=== PATIENT | male | born 1965 | race Caucasian/White ===

== ENCOUNTER 2021-11-19 15:40 | Inpatient (IN) | payer BC, OTHER ==
[2021-11-19 16:01] VITALS: BP 154/91; PULSE 78; TEMP 98.2; BMI 39.0
[2021-11-19 17:50] LABS: BASO % 1.2 % (0-2.0); EOS % 3.2 % (0-4.5); HEMATOCRIT 39.1 % (35.4-49); HEMOGLOBIN 13.1 GM/dL (11.7-16.9); LYMPH % 21.8 % (8-40); MCH 29.4 pg (25.7-33.7); MCHC 33.6 g/dl (32.0-35.9); MEAN CELL VOLUME 87.5 fl (80-96); MEAN PLT VOLUME 6.6 fl (7.5-11.1); MONO % 5.3 % (3.8-10.2); NEUT % 68.5 % (42.8-82.8); PLATELET COUNT 197 10^3/uL (134-434); RBC 4.47 M/mm3 (4.00-5.60); RDW 14.7 % (11.9-15.9); WHITE BLOOD COUNT 6.1 K/mm3 (4.0-10.0)
[2021-11-19 17:54] LABS: INR 1.07 (0.83-1.09); PROTHROMBIN TIME (PATIENT) 12.3 SEC (9.7-13.0)
[2021-11-19 17:56] LABS: ACTIVATED PTT 34.9 SECONDS (25.2-36.5)
[2021-11-19 18:06] LABS: CHLORIDE 104 mmol/L (98-107); SODIUM 140 mmol/L (136-145)
[2021-11-19 18:07] LABS: CALCIUM 8.7 mg/dL (8.5-10.1)
[2021-11-19 18:08] LABS: ANION GAP 9 MMOL/L (8-16); BLOOD UREA NITROGEN 17.5 mg/dL (7-18); CO2 28 mmol/L (21-32); GLUCOSE,RANDOM 163 mg/dL (74-106); MAGNESIUM 2.7 mg/dL (1.8-2.4)
[2021-11-19 18:11] LABS: CREATININE 1.5 mg/dL (0.55-1.3); SGOT/AST 177 U/L (15-37); SGPT/ALT 88 U/L (13-61)
[2021-11-19 18:12] LABS: TOT PROT 6.5 g/dl (6.4-8.2)
[2021-11-19] MEDS ORDERED: LACTATED RINGERS SOLUTION 1000 ML INFUS.BAG IV ONE (18:12)
[2021-11-19 18:13] LABS: BILIRUBIN,TOTAL 0.6 mg/dL (0.2-1)
[2021-11-19 18:14] LABS: ALK PHOS 72 U/L (45-117)
[2021-11-19 18:16] LABS: N-TERMINAL BNP 29.7 pg/ml (5-125)
[2021-11-19] MEDS ORDERED: CLINDAMYCIN 900 MG PREMIX IVPB 900 MG/50 ML BAG IVPB ONE ×2 (19:35→20:56)
[2021-11-19 22:50] LABS: URINE APPEARANCE CLEAR; URINE BILIRUBIN NEGATIVE (NEGATIVE); URINE COLOR YELLOW; URINE GLUCOSE (UA) NEGATIVE (NEGATIVE); URINE KETONE TRACE (NEGATIVE); URINE LEUK ESTERASE NEGATIVE (NEGATIVE); URINE NITRITE NEGATIVE (NEGATIVE); URINE PROTEIN NEGATIVE (NEGATIVE); URINE UROBILINOGEN 0.2 mg/dL (0.2-1.0)
[2021-11-19 23:03] LABS: OPIATES, URI NEGATIVE (NEGATIVE)
[2021-11-19 23:04] LABS: METHADONE, UR NEGATIVE (NEGATIVE); PHENCYCLIDINE,URINE NEGATIVE (NEGATIVE); URINE AMPHETAMINES NEGATIVE (NEGATIVE); URINE BARBITURATES NEGATIVE (NEGATIVE)
[2021-11-19 23:09] LABS: COCAINE, UR NEGATIVE (NEGATIVE); URINE BENZODIAZEPINES NEGATIVE (NEGATIVE)
== END 2021-11-19 22:50 | disposition left against medical advice (07) | DRG 204 ==
LOC: JER 15:40 → JERBED 19:15
PROVIDERS: ADMIT Internal Medicine; ATTEND Internal Medicine
DX: R55 Syncope and collapse (principal); E03.9 Hypothyroidism, unspecified; I25.10 Atherosclerotic heart disease of native coronary artery without angina pectoris; E11.9 Type 2 diabetes mellitus without complications; F31.9 Bipolar disorder, unspecified; I10 Essential (primary) hypertension; R53.1 Weakness; I49.3 Ventricular premature depolarization; I25.2 Old myocardial infarction; F17.210 Nicotine dependence, cigarettes, uncomplicated; Z95.5 Presence of coronary angioplasty implant and graft; Z85.850 Personal history of malignant neoplasm of thyroid
CPT/HCPCS: 0241U-QW; 36415; 70450-TC; 71046-TC-FY; 80053; 80307; 81003; 82962; 83735; 83880; 84439; 84443; 84484; 85025; 85610; 85730; 86850; 86900; 86901; 87086; 93005; 93010; 99285-25